=== PATIENT | male | born 1955 | race Caucasian/White ===

== ENCOUNTER 2020-09-06 16:56 | Emergency (ER) | payer BC ==
[~2020-09-06] VITALS: Ht 175.3 cm; Wt 86.2 kg
--- NOTE | 2020-09-06 16:56 | NUR ---
PT BIB SELF C/O R FACIAL DROOP, BOTH UPPER EXTREMITY NUMBNESS THAT STARTED LAST Sunday09/04/2020, PT IS AAOX4, NOT IN RESPIRATORY DISTRESS, HOOKED TO VIDEOGAME DESIGNER, KEPT RESTED AND COMFORTABLE. WILL CONTINUE TO MONITOR.
--- NOTE | 2020-09-06 17:08 | NUR ---
AT BEDSIDE FOR EVAL.
--- NOTE | 2020-09-06 17:12 | NUR ---
IV LINE ESTABLISHED BLOOD DRAWN AND SENT TO LAB.
[2020-09-06 17:35] LABS: BASOPHILS % (AUTO) 0.3 % (0.0-2.0); EOSINOPHILS % (AUTO) 2.5 % (0.0-6.0); HEMATOCRIT 51 % (39-51); HEMOGLOBIN 16.7 g/dL (13.5-17.5); LYMPHOCYTES # (AUTO) 2.4 /CMM (0.8-4.8); LYMPHOCYTES % (AUTO) 16.5 % (20.0-44.0); MEAN CORPUSCULAR HGB CONC 33 g/dl (31.0-36.0); MEAN CORPUSCULAR VOLUME 87 fL (80-96); MONOCYTES # (AUTO) 1.1 /CMM (0.1-1.30); MONOCYTES % (AUTO) 7.4 % (2.0-12.0); NEUTROPHILS # (AUTO) 10.6 /CMM (1.8-8.9); NEUTROPHILS % (AUTO) 73.3 % (43.0-81.0); PLATELET COUNT (AUTO) 394 /CMM (150-450); RED BLOOD CELL COUNT(AUTO) 5.84 MIL/uL (4.5-6.0); WHITE BLOOD COUNT (AUTO) 14.5 K/uL (4.3-11.0)
[2020-09-06 17:43] LABS: CALCIUM, SERUM 9.3 mg/dL (8.5-10.1); CARBON DIOXIDE 28 mmol/L (21-32); CHLORIDE 100 mmol/L (98-107); GLUCOSE 116 mg/dL (74-106); POTASSIUM 4.3 mmol/L (3.5-5.1); SODIUM SERUM 136 mmol/L (136-145); UREA NITROGEN, BLOOD 21 mg/dL (7-18)
[2020-09-06] MEDS ORDERED: IOHEXOL-350 100 ML VIAL IV ONE ×2 (17:47→17:49)
[2020-09-06] MEDS ORDERED: IV NS 0.9% 250 ML IV ONE (17:49)
--- NOTE | 2020-09-06 17:49 | NUR ---
PT IS WHEELED TO CT SCAN VIA [facility].
[2020-09-06 18:17] LABS: CHOLESTEROL 191 mg/dL (<200); HDL CHOLESTEROL 47 mg/dL (40-60); LDL 124 mg/dL (0-99); TRIGLYCERIDES 169 mg/dL (30-150)
[2020-09-06] MEDS ORDERED: ZOLP12.542 PO (18:35)
[2020-09-06] MEDS ORDERED: GABA-532 PO (18:35)
[2020-09-06] MEDS ORDERED: LISD40CA PO (18:35)
[2020-09-06] MEDS ORDERED: ASPIRIN 325 MG TABLET ONE (19:14)
[2020-09-06] MEDS ORDERED: ASPIRIN 300 MG/SUPP.RECT RC ONE ×2 (19:24→19:30)
[2020-09-06] MEDS ORDERED: ASPIRIN 81 MG TAB.CHEW ONE (19:28)
[2020-09-06] MEDS ORDERED: ASPIRIN 325 MG TABLET PO ONE (19:30)
--- NOTE | 2020-09-06 19:32 | NUR ---
Note petey in EDM - 09/06/20 at 1934 by KELLEN PATIENT REFUSED ASA [place]; DR. HO MADE AWARE, PER DR. HO GIVE ASA 324MG CHEWABLE DESPITE FAILING SWALLOW SCREEN. ASA GIVEN, NO ADVERSE EFFECT NOTED.
--- NOTE | 2020-09-06 19:34 | NUR ---
PATIENT REFUSED ASA [place]; DR. HO MADE AWARE, PER DR. HO GIVE ASA 324MG CHEWABLE DESPITE FAILING SWALLOW SCREEN. ASA GIVEN, NO ADVERSE EFFECT NOTED.
[2020-09-06] MEDS ORDERED: ASPIRIN 81 MG TAB.CHEW PO ONE (20:00)
--- NOTE | 2020-09-06 20:07 | NUR ---
CALL FROM LAB, RAPID COVID NEGATIVE.
--- NOTE | 2020-09-06 21:44 | NUR ---
PT ACCEPTED UNDER DR CASTILLO GUERRERO WILL CALL BACK FROM ETA
--- NOTE | 2020-09-06 22:36 | NUR ---
PT ACCEPTED TO [facility] BY DR CHONG. ROOM 503-2. # FOR REPORT [phone]. [facility] ETA 30 MIN.
[2020-09-06 22:47] VITALS: BP 142/102
--- NOTE | 2020-09-06 22:58 | NUR ---
REPORT GIVEN TO FRANCOISE RN NURSE AT [facility]
--- NOTE | 2020-09-06 23:26 | NUR ---
PT LEFT TO [facility], LEFT IN STABLE COND. REPORT GIVEN
== END 2020-09-06 23:28 | disposition short-term general hospital (02) ==
LOC: ER 17:03
DX: I63.9 Cerebral infarction, unspecified (principal); G83.21 Monoplegia of upper limb affecting right dominant side; R29.703 NIHSS score 3; R53.82 Chronic fatigue, unspecified; F90.9 Attention-deficit hyperactivity disorder, unspecified type; G47.30 Sleep apnea, unspecified; G47.00 Insomnia, unspecified; Z79.899 Other long term (current) drug therapy; I69.392 Facial weakness following cerebral infarction; I67.1 Cerebral aneurysm, nonruptured; Z20.822 Contact with and (suspected) exposure to COVID-19
CPT/HCPCS: 36415; 70496; 70498; 71045; 80048; 80061; 82962; 84484; 85025; 85730; 87081; 87426; 93005; 99291; C9803; J7050; Q9967 ×2